=== PATIENT | male | born 1955 | race African-American/Black ===

== ENCOUNTER 2019-01-27 15:45 | Emergency (ER) | payer OTHER | END 2019-01-27 18:31 | disposition home or self-care (01) | LOC: E/R 18:31 | DX: M79.671 Pain in right foot (principal); J44.9 Chronic obstructive pulmonary disease, unspecified; I10 Essential (primary) hypertension; Z79.01 Long term (current) use of anticoagulants; Z86.73 Personal history of transient ischemic attack (TIA), and cerebral infarction without residual deficits | CPT/HCPCS: 73610; 73610-RT; 73630; 99283-25 ==